=== PATIENT | female | born 1945 ===

== ENCOUNTER 2024-06-25 15:33 | Inpatient (IN) | payer OTHER ==
[2024-06-25] MEDS ORDERED: ACETAMINOPHEN INJECTION 100 ML ONE (15:56)
[2024-06-25] MEDS: ACETAMINOPHEN 1000 MG/100 ML BAG IVPB ONE (16:10)
[2024-06-25 16:23] LABS: BASO % 0.2 % (0-2.0); EOS % 0.5 % (0-4.5); HEMATOCRIT 35.8 % (32.4-45.2); LYMPH % 10.1 % (8-40); MCH 30.2 pg (25.7-33.7); MCHC 33.6 g/dl (32.0-36.0); MEAN CELL VOLUME 89.8 fl (80-96); MONO % 5.6 % (3.8-10.2); NEUT % 83.6 % (42.8-82.8); PLATELET COUNT 279 10^3/uL (134-434); RBC 3.99 M/mm3 (3.60-5.2); RDW 14.4 % (11.6-15.6); WHITE BLOOD COUNT 10.4 K/mm3 (4.0-10.0)
[2024-06-25 16:29] LABS: INR 1.02 (0.83-1.09); PROTHROMBIN TIME (PATIENT) 11.7 SEC (9.7-13.0)
[2024-06-25 16:32] LABS: ACTIVATED PTT 27.6 SECONDS (25.2-36.5)
[2024-06-25 16:39] LABS: POTASSIUM 4.3 mmol/L (3.5-5.1)
[2024-06-25 16:41] LABS: CALCIUM 8.5 mg/dL (8.5-10.1)
[2024-06-25 16:42] LABS: ALBUMIN 2.7 g/dl (3.4-5.0); BLOOD UREA NITROGEN 21.4 mg/dL (7-18)
[2024-06-25 16:45] LABS: CREATININE 0.8 mg/dL (0.55-1.3)
[2024-06-25 16:46] LABS: BILIRUBIN,TOTAL 0.3 mg/dL (0.2-1); TOT PROT 6.5 g/dl (6.4-8.2)
[2024-06-25] MEDS: SODIUM CHLORIDE 0.9% 500 ML INFUS.BAG IV ONE (18:46)
[2024-06-25 18:48] LABS: EPI CELLS 12 /uL (0-25.1); HYALINE CASTS 1 /uL (0-3.1); PH,URINE 5.5 (5.0-8.0); URINE APPEARANCE TURBID; URINE BACTERIA >9,000 /uL (0-1359); URINE BILIRUBIN NEGATIVE (NEGATIVE); URINE COLOR YELLOW; URINE GLUCOSE (UA) NEGATIVE (NEGATIVE); URINE KETONE NEGATIVE (NEGATIVE); URINE LEUK ESTERASE 2+ (NEGATIVE); URINE NITRITE POSITIVE (NEGATIVE); URINE PROTEIN 1+ (NEGATIVE); URINE RBC 269 /uL (0-23.9); URINE UROBILINOGEN 0.2 mg/dL (0.2-1.0); URINE WBC 4901 /uL (0-25.8)
[2024-06-25] MEDS ORDERED: CEFTRIAXONE 1 G/50 ML PREMIX 50 ML IVPB ONE (18:59)
[2024-06-25] MEDS ORDERED: ACETAMINOPHEN 1000 MG/100 ML BAG IVPB PRN (21:19)
[2024-06-25] MEDS: MEMANTINE HCL 5 MG TABLET (UD) PO SCH (23:53)
[2024-06-26] MEDS: SODIUM CHLORIDE 1,000 ML IV SCH (01:51)
[2024-06-26 08:29] LABS: CALCIUM 8.2 mg/dL (8.5-10.1)
[2024-06-26 08:30] LABS: ALBUMIN 2.7 g/dl (3.4-5.0); BLOOD UREA NITROGEN 18.7 mg/dL (7-18); MAGNESIUM 2.2 mg/dL (1.8-2.4)
[2024-06-26 08:33] LABS: CREATININE 0.6 mg/dL (0.55-1.3)
[2024-06-26 08:34] LABS: BILIRUBIN,TOTAL 0.5 mg/dL (0.2-1); TOT PROT 6.4 g/dl (6.4-8.2)
[2024-06-26 08:36] LABS: HEMATOCRIT 33.4 % (32.4-45.2); HEMOGLOBIN 11.4 GM/dL (10.7-15.3); MCH 30.8 pg (25.7-33.7); MCHC 34.2 g/dl (32.0-36.0); MEAN PLT VOLUME 7.5 fl (7.5-11.1); PLATELET COUNT 263 10^3/uL (134-434); RBC 3.72 M/mm3 (3.60-5.2); RDW 14.4 % (11.6-15.6)
[2024-06-26] MEDS ORDERED: CEFAZOLIN 1 GM/D5W 1 GM/50 ML BAG ONE (09:25)
[2024-06-26] MEDS ORDERED: LEVOTHYROXINE NA 100 MCG TABLET (FP) ONE (09:25)
[2024-06-26] MEDS: CEFTRIAXONE 1 G/50 ML PREMIX 50 ML IVPB SCH (09:26)
[2024-06-26] MEDS: LEVOTHYROXINE NA 100 MCG TABLET (FP) PO SCH (09:26)
[2024-06-26] MEDS: SODIUM CHLORIDE 0.45% 1,000 ML IV SCH (13:26)
[2024-06-26] MEDS: ENOXAPARIN NA (PORCINE) 40 MG/0.4 ML DISP.SYRIN SQ ONE (13:37)
[2024-06-26] MEDS ORDERED: ENOXAPARIN NA (PORCINE) 40 MG/0.4 ML DISP.SYRIN SQ ONE (13:39)
[2024-06-26 19:10] VITALS: BMI 24.6
[2024-06-26] MEDS: ACETAMINOPHEN 1000 MG/100 ML BAG IVPB PRN (21:55)
[2024-06-27] MEDS: ALBUTEROL SO4 2.5/IPRATROPIUM 0.5 INH SOL 3 ML VIAL.NEB. NEB SCH (15:56)
[2024-06-27] MEDS: SULFAMETHOXAZOLE/TRIMETHOPRIM 800MG/160MG D.S. TABLET PO SCH (23:00)
[2024-06-28 09:59] LABS: HEMATOCRIT 34.1 % (32.4-45.2); HEMOGLOBIN 11.4 GM/dL (10.7-15.3); MCH 29.8 pg (25.7-33.7); MCHC 33.4 g/dl (32.0-36.0); RBC 3.83 M/mm3 (3.60-5.2); RDW 14.6 % (11.6-15.6); WHITE BLOOD COUNT 10.8 K/mm3 (4.0-10.0)
[2024-06-28] MEDS ORDERED: CEFTRIAXONE 1 G/50 ML PREMIX 50 ML IVPB SCH (10:00)
[2024-06-28] MEDS ORDERED: CEFPODOXIME PROXETIL 100 MG TABLET PO SCH (10:00)
[2024-06-28 10:23] LABS: POTASSIUM 3.8 mmol/L (3.5-5.1)
[2024-06-28 10:24] LABS: MEAN PLT VOLUME 7.4 fl (7.5-11.1); PLATELET COUNT 281 10^3/uL (134-434)
[2024-06-28 10:25] LABS: CALCIUM 8.5 mg/dL (8.5-10.1)
[2024-06-28 10:26] LABS: ALBUMIN 2.6 g/dl (3.4-5.0); BLOOD UREA NITROGEN 14.6 mg/dL (7-18)
[2024-06-28 10:29] LABS: CREATININE 0.7 mg/dL (0.55-1.3)
[2024-06-28 10:31] LABS: BILIRUBIN,TOTAL 0.4 mg/dL (0.2-1); TOT PROT 6.4 g/dl (6.4-8.2)
[2024-06-28] MEDS: ENOXAPARIN NA (PORCINE) 40 MG/0.4 ML DISP.SYRIN SQ SCH (10:36)
[2024-06-28] MEDS: ACETAMINOPHEN 500 MG TABLET (FP) PO PRN (15:51)
[2024-06-30] MEDS: MEMANTINE HCL 5 MG TABLET (UD) PO ONE (21:56)
[2024-06-30 22:08] VITALS: BP 142/101; PULSE 119; RESP 20; TEMP 99.1
== END 2024-06-30 22:30 | DRG 563 ==
LOC: JER 15:33 → JERBED 18:09 → OBSVTOIN 21:03 → J6W 06-26 14:01
PROVIDERS: ADMIT Internal Medicine; ATTEND Internal Medicine
DX: S42.352A Displaced comminuted fracture of shaft of humerus, left arm, initial encounter for closed fracture (principal); N39.0 Urinary tract infection, site not specified; J90 Pleural effusion, not elsewhere classified; J98.11 Atelectasis; I95.9 Hypotension, unspecified; G30.9 Alzheimer's disease, unspecified; F02.80 Dementia in other diseases classified elsewhere, unspecified severity, without behavioral disturbance, psychotic disturbance, mood disturbance, and anxiety; E03.9 Hypothyroidism, unspecified; B96.20 Unspecified Escherichia coli [E. coli] as the cause of diseases classified elsewhere; W18.30XA Fall on same level, unspecified, initial encounter; Y92.122 Bedroom in nursing home as the place of occurrence of the external cause; Y99.9 Unspecified external cause status
CPT/HCPCS: 0241U-QW; 36415; 70450-TC; 71045-TC-FY; 72125-TC; 72170-TC-FY; 73030-TC-LT-FY; 80053; 81003; 83735; 84100; 84484; 85025; 85027; 85610; 85730; 86850; 86900; 86901; 87086; 87186; 87635; 93005; 93010; 94640; 97161-GP; 99283-25; G0378; J0131